=== PATIENT | female | born 1955 | race Caucasian/White ===

== ENCOUNTER 2017-11-01 11:00 | Inpatient (IN) | payer OTHER ==
[~2017-11-01] VITALS: Ht 160 cm; Wt 81.6 kg
[~2017-11-01 11:00] MED LIST: CIPRO750 MG PO; CLONAZEPAM1 MG PO; DOCUSATE SODIU100 MG PO; METHYLPRED4 MG/DOSE- PO; NEURONTIN PO; PERCOCET 5/3251 TAB PO
[2017-11-10] MEDS ORDERED: DOCUSATE SODIU100 MG PO (09:42)
[2017-11-10] MEDS ORDERED: CLONAZEPAM1 MG PO (09:43)
[2017-11-10] MEDS ORDERED: PERCOCET 5-3251 EACH PO (09:43)
== END 2017-11-10 15:30 | disposition home or self-care (01) | DRG 454 ==
LOC: O/R 11-09 04:55 → PED 11-09 04:55 → SURH 11-09 10:15 → PED 11-09 13:19 → SURH 11-09 13:30 → PED 11-10 15:30
PROVIDERS: Orthopaedic Surgery Orthopaedic Surgery of the Spine
PROC: 0RG2071 Fusion of 2 or more Cervical Vertebral Joints with Autologous Tissue Substitute, Posterior Approach, Posterior Column, Open Approach (ICD-10-PCS; 2017-11-09)
PROC: 0RT30ZZ Resection of Cervical Vertebral Disc, Open Approach (ICD-10-PCS; 2017-11-09)
PROC: 07DS3ZZ Extraction of Vertebral Bone Marrow, Percutaneous Approach (ICD-10-PCS; 2017-11-09)
PROC: 0RG20A0 Fusion of 2 or more Cervical Vertebral Joints with Interbody Fusion Device, Anterior Approach, Anterior Column, Open Approach (ICD-10-PCS; principal; 2017-11-09 10:15)
DX: M50.01 Cervical disc disorder with myelopathy, high cervical region (principal); M47.12 Other spondylosis with myelopathy, cervical region; E11.9 Type 2 diabetes mellitus without complications; I10 Essential (primary) hypertension